=== PATIENT | male | born 1935 | race Caucasian/White ===

== ENCOUNTER 2017-09-20 09:15 | Emergency (ER) | payer BC, MEDICARE ==
--- NOTE | 2017-09-20 09:49 | EDM.PDOC ---
ED HPI GENERAL MEDICAL PROBLEM - General Chief Complaint: General Stated Complaint: PASSED OUT Time Seen by Provider: 09/20/17 09:35 Source of Information: Reports: Patient, Family History Limitations: Reports: No Limitations - History of Present Illness INITIAL COMMENTS - FREE TEXT/NARRATIVE: Peña was walking with friends at the [facility] indoor field house when he lost consciousness spontaneously. He is uncertain of how long this episode occurred, but when recovered he was sitting in a wheelchair. There was no aura or premonition, no chest pain or SOB, no palpitations or focal weakness. He is currently asx. There is a PMH of Type II DM, HBP. He reportedly drank 4 glasses of water this am because he is dieting. - Related Data Allergies Allergy/AdvReac Type Severity Reaction Status Date / Time No Known Allergies Allergy Verified 09/20/17 10:23 Home Meds: Home Meds . [Unable to Verify Home Med List] 09/20/17 [History] Past Medical History Cardiovascular History: Reports: High Cholesterol, Hypertension Gastrointestinal History: Reports: Other (See Below) (elevated LFTs) Endocrine/Metabolic History: Reports: Diabetes, Type II Social & Family History - Tobacco Use Smoking Status *Q: Never Smoker Second Hand Smoke Exposure: No - Caffeine Use Caffeine Use: Reports: Coffee - Recreational Drug Use Recreational Drug Use: No ED ROS GENERAL - Review of Systems Review Of Systems: See Below Constitutional: Reports: No Symptoms HEENT: Reports: No Symptoms Respiratory: Reports: No Symptoms Cardiovascular: Reports: Syncope Endocrine: Reports: No Symptoms GI/Abdominal: Reports: No Symptoms : Reports: No Symptoms Musculoskeletal: Reports: No Symptoms Skin: Reports: No Symptoms Neurological: Reports: Syncope Psychiatric: Reports: No Symptoms Hematologic/Lymphatic: Reports: No Symptoms Immunologic: Reports: No Symptoms ED EXAM, GENERAL - Physical Exam Exam: See Below Exam Limited By: No Limitations General Appearance: Alert, WD/WN, No Apparent Distress Eye Exam: Bilateral Eye: Normal Inspection, PERRL Ears: Normal External Exam, Normal TMs Nose: Normal Inspection Throat/Mouth: Normal Inspection, Normal Oropharynx Head: Atraumatic, Normocephalic Neck: Normal Inspection, Supple, Non-Tender, Full Range of Motion Respiratory/Chest: No Respiratory Distress, Lungs Clear, Normal Breath Sounds, No Accessory Muscle Use, Chest Non-Tender Cardiovascular: Normal Peripheral Pulses, Regular Rate, Rhythm, No Edema, No Murmur GI/Abdominal: Normal Bowel Sounds, Soft, Non-Tender, No Organomegaly, No Distention, No Mass (Male) Exam: No Hernia Rectal (Males) Exam: Deferred Back Exam: Normal Inspection Extremities: Normal Range of Motion, Non-Tender, No Pedal Edema Neurological: Alert, Oriented, CN II-XII Intact, Normal Cognition, No Motor/ Sensory Deficits Psychiatric: Normal Affect, Normal Mood Skin Exam: Warm, Dry, Other (minor abrasions of the R forearm, L hand, and R knee; minor contusion of L hand thenar eminence) Lymphatic: No Adenopathy Course - Vital Signs Text/Narrative:: Peña remained stable at the [facility] ED. Orthostatic BPs were obtained and physiologic. Screening labs noted mild elevations of LFTs, and old finding and possibly related to Statin therapy. His ekg noted NSR. Last Recorded V/S: Last Vital Signs Temp 36.6 C 09/20/17 09:26 Pulse 64 09/20/17 09:26 Resp 15 09/20/17 09:26 BP 141/80 H 09/20/17 09:26 Pulse Ox 98 09/20/17 09:26 Orthostatic Blood Pressure [ 130/71 Standing] Orthostatic Blood Pressure [ 140/71 Sitting] Orthostatic Blood Pressure [ 147/66 Supine] - Orders/Labs/Meds Orders: Active Orders 24 hr Category Date Time Status Orthostatic Vital Signs [RC] ASDIRECTED Care 09/20/17 11:04 Active UA W/MICROSCOPIC [URIN] Stat Lab 09/20/17 10:56 Received EKG 12 Lead [EK] Routine Ther 09/20/17 09:45 Ordered Labs: Laboratory Tests 09/20/17 09/20/17 09/20/17 Range/Units 10:10 10:10 10:10 WBC 4.7 (4.5-12.0) X10-3/uL RBC 4.62 (4.30-5.75) x10(6)uL Hgb 15.3 (11.5-15.5) g/dL Hct 43.6 (30.0-51.3) % MCV 94.4 (80-96) fL MCH 33.2 (27.7-33.6) pg MCHC 35.2 (32.2-35.4) g/dL RDW 12.3 (11.5-15.5) % Plt Count 168 (125-369) X10(3)uL MPV 8.1 (7.4-10.4) fL Neut % (Auto) 68.1 (46-82) % Lymph % (Auto) 21.9 (13-37) % Ogle % (Auto) 6.0 (4-12) % Eos % (Auto) 3 (1.0-5.0) % Baso % (Auto) 1 (0-2) % Neut # (Auto) 3.3 (1.6-8.3) # Lymph # (Auto) 1.0 (0.6-5.0) # Ogle # (Auto) 0.3 (0.0-1.3) # Eos # (Auto) 0.1 (0.0-0.8) # Baso # (Auto) 0.0 (0.0-0.2) # Sodium 137 (135-145) mmol/L Potassium 4.2 (3.5-5.3) mmol/L Chloride 102 (100-110) mmol/L Carbon Dioxide 28 (23-29) mmol/L BUN 24 H (8-23) mg/dL Creatinine 1.2 (0.6-1.3) mg/dL Est Cr Clr Drug Dosing 53.16 mL/min Estimated GFR (MDRD) 58 L (>60) BUN/Creatinine Ratio 20.0 (9-20) Glucose 138 H (80-116) mg/dL POC Glucose (80-116) mg/dL Calcium 9.0 (8.6-10.2) mg/dL Total Bilirubin 1.5 H (0.1-1.3) mg/dL AST 55 H (5-27) IU/L ALT 43 H (14-26) IU/L Alkaline Phosphatase 66 (56-112) IU/L Troponin I < 0.01 L (0.02-0.06) NG/ML Total Protein 6.8 (6.0-8.0) g/dL Albumin 3.8 (3.2-4.6) g/dL Globulin 3.0 g/dL Albumin/Globulin Ratio 1.3 09/20/17 Range/Units 10:31 WBC (4.5-12.0) X10-3/uL RBC (4.30-5.75) x10(6)uL Hgb (11.5-15.5) g/dL Hct (30.0-51.3) % MCV (80-96) fL MCH (27.7-33.6) pg MCHC (32.2-35.4) g/dL RDW (11.5-15.5) % Plt Count (125-369) X10(3)uL MPV (7.4-10.4) fL Neut % (Auto) (46-82) % Lymph % (Auto) (13-37) % Ogle % (Auto) (4-12) % Eos % (Auto) (1.0-5.0) % Baso % (Auto) (0-2) % Neut # (Auto) (1.6-8.3) # Lymph # (Auto) (0.6-5.0) # Ogle # (Auto) (0.0-1.3) # Eos # (Auto) (0.0-0.8) # Baso # (Auto) (0.0-0.2) # Sodium (135-145) mmol/L Potassium (3.5-5.3) mmol/L Chloride (100-110) mmol/L Carbon Dioxide (23-29) mmol/L BUN (8-23) mg/dL Creatinine (0.6-1.3) mg/dL Est Cr Clr Drug Dosing mL/min Estimated GFR (MDRD) (>60) BUN/Creatinine Ratio (9-20) Glucose (80-116) mg/dL POC Glucose 131 H (80-116) mg/dL Calcium (8.6-10.2) mg/dL Total Bilirubin (0.1-1.3) mg/dL AST (5-27) IU/L ALT (14-26) IU/L Alkaline Phosphatase (56-112) IU/L Troponin I (0.02-0.06) NG/ML Total Protein (6.0-8.0) g/dL Albumin (3.2-4.6) g/dL Globulin g/dL Albumin/Globulin Ratio Departure - Departure Time of Disposition: 11:13 Disposition: Home, Self-Care 01 Condition: Good Clinical Impression: Syncope and collapse - Discharge Information Referrals: Erik Tamez MD [Primary Care Provider] - Forms: ED Department Discharge Additional Instructions: follow up with PCP. - Problem List & Annotations (1) Syncope and collapse SNOMED Code(s): 215015266 Code(s): R55 - SYNCOPE AND COLLAPSE Status: Acute Current Visit: Yes Annotation/Comment:: Syncope NOS. I suggested activity as tolerated, no driving , and follow up with PCP for further assessment including cardiovascular study if indicated. His meds will remain the same. - Problem List Review Problem List Initiated/Reviewed/Updated: Yes - My Orders Last 24 Hours: My Active Orders 09/20/17 09:45 EKG 12 Lead [EK] Routine 09/20/17 10:56 UA W/MICROSCOPIC [URIN] Stat 09/20/17 11:04 Orthostatic Vital Signs [RC] ASDIRECTED - Assessment/Plan Last 24 Hours: My Active Orders 09/20/17 09:45 EKG 12 Lead [EK] Routine 09/20/17 10:56 UA W/MICROSCOPIC [URIN] Stat 09/20/17 11:04 Orthostatic Vital Signs [RC] ASDIRECTED Plan: Follow up with PCP.
== END 2017-09-20 11:10 | disposition home or self-care (01) ==
LOC: FB.ED 09:15
DX: R55 Syncope and collapse (principal); S60.222A Contusion of left hand, initial encounter; S50.811A Abrasion of right forearm, initial encounter; S80.211A Abrasion, right knee, initial encounter; I10 Essential (primary) hypertension; E11.9 Type 2 diabetes mellitus without complications; W01.198A Fall on same level from slipping, tripping and stumbling with subsequent striking against other object, initial encounter
CPT/HCPCS: 36415; 80053; 81001; 82962; 84484; 85025; 93005; 99284

== ENCOUNTER 2017-09-26 19:15 | Emergency (ER) | payer BC ==
[2017-09-26] MEDS ORDERED: Sodium Chloride 0.9% 1,000 ML IV ONE (19:42)
[2017-09-26] MEDS ORDERED: cloNIDine 0.1 MG Tab PO ONE (21:02)
[2017-09-26] MEDS ORDERED: Iopamidol 755 Mg/ML 75 ML Bottle IV ONE (21:08)
[2017-09-26] MEDS ORDERED: Acetaminophen 500 MG Tab PO ONE (23:10)
--- NOTE | 2017-09-27 00:09 | EDM.PDOC ---
ED HPI GENERAL MEDICAL PROBLEM - General Chief Complaint: Cardiovascular Problem Stated Complaint: SYNCOPE Time Seen by Provider: 09/26/17 19:15 Source of Information: Reports: Patient History Limitations: Reports: No Limitations - History of Present Illness INITIAL COMMENTS - FREE TEXT/NARRATIVE: c/o syncope pt felt fine today, went out to bingo with his , ate popcorn, returned home , after parking car he went out to get the mail and collapsed on the garage floor on his way back into the house, thinks he may been slightly dizzy, slight posterior head and shoulder soreness, no incontinence of B & B, no shaking per , aroused quickly, declined EMS, driven to ED by his fully alert here, not postictal h/o syncope 2w ago, had 24h Holtor completed 2d ago, does not know the results has an EST at 11:[address] 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 who accepted pt in transfer, he reviewed the echo from 1y ago which showed normal valves and no dilation of the aorta Treatments CIRCLE BEVELER: Reports: EKG Upper shoulder pain Pain Score (Numeric/FACES): 3 - Related Data Allergies Allergy/AdvReac Type Severity Reaction Status Date / Time No Known Allergies Allergy Verified 09/20/17 10:23 Home Meds: Home Meds Aspirin [Adult Low Dose Aspirin EC] 81 mg PO BEDTIME 09/26/17 [History] Hydrochlorothiazide/Lisinopril [Lisinopril/HCTZ 10-12.5 MG] 1 tab DAILY [History] Lutein [Natural Lutein] 20 mg PO DAILY 09/26/17 [History] Multivitamin [Multivitamins] 1 each PO DAILY 09/26/17 [History] Pravastatin Sodium [Pravastatin Sodium] 20 mg BEDTIME 09/26/17 [History] metFORMIN HCl [Metformin HCl] 250 mg DAILY 09/26/17 [History] Past Medical History HEENT History: Reports: Cataract, Hard of Hearing Cardiovascular History: Reports: Heart Murmur, High Cholesterol, Hypertension Gastrointestinal History: Reports: Other (See Below) Other Gastrointestinal History: gall stones Musculoskeletal History: Reports: Arthritis Neurological History: Reports: Concussion Endocrine/Metabolic History: Reports: Diabetes, Type II, Obesity/BMI 30+ - Infectious Disease History Infectious Disease History: Reports: Chicken Pox - Past Surgical History HEENT Surgical History: Reports: None Cardiovascular Surgical History: Reports: None GI Surgical History: Reports: Colonoscopy Social & Family History - Family History Family Medical History: Noncontributory - Tobacco Use Smoking Status *Q: Former Smoker Years of Tobacco use: 9 Used Tobacco, but Quit: Yes Month Tobacco Last Used: 1964 Second Hand Smoke Exposure: No - Caffeine Use Caffeine Use: Reports: Coffee - Alcohol Use Days Per Week of Alcohol Use: 2 Number of Drinks Per Day: 2 Total Drinks Per Week: 4 - Recreational Drug Use Recreational Drug Use: No ED ROS GENERAL - Review of Systems Review Of Systems: See Below Constitutional: Reports: No Symptoms HEENT: Reports: No Symptoms Respiratory: Reports: No Symptoms Cardiovascular: Reports: No Symptoms Endocrine: Reports: No Symptoms GI/Abdominal: Reports: No Symptoms : Reports: No Symptoms Musculoskeletal: Reports: No Symptoms Skin: Reports: No Symptoms Neurological: Reports: Dizziness, Syncope Psychiatric: Reports: No Symptoms Hematologic/Lymphatic: Reports: No Symptoms Immunologic: Reports: No Symptoms ED EXAM, GENERAL - Physical Exam Exam: See Below Exam Limited By: No Limitations General Appearance: Alert, WD/WN, No Apparent Distress Eye Exam: Bilateral Eye: Normal Inspection Nose: Normal Inspection, Normal Mucosa, No Blood Throat/Mouth: Normal Inspection, Normal Lips, Normal Teeth, Normal Gums, Normal Oropharynx, Normal Voice, No Airway Compromise Head: Atraumatic, Normocephalic, Other (slight tender at occiput, no STS, no ecchymosis) Neck: Normal Inspection, Supple, Non-Tender, Full Range of Motion Respiratory/Chest: No Respiratory Distress, Lungs Clear, Normal Breath Sounds, No Accessory Muscle Use, Chest Non-Tender Cardiovascular: Regular Rate, Rhythm, No Edema, No Gallop, No JVD, No Rub, Other (harsh decrescendo 2/6 JINNY at RUSB to LSB, loud A1, no S3/S4, no pope murmur, quiet precordium) GI/Abdominal: Soft, Non-Tender, No Organomegaly, No Distention Back Exam: Normal Inspection, Full Range of Motion, NT Extremities: Normal Inspection, Normal Range of Motion, Non-Tender, No Pedal Edema Neurological: Alert, Oriented, CN II-XII Intact, Normal Cognition, No Motor/ Sensory Deficits Psychiatric: Normal Affect, Normal Mood Skin Exam: Warm, Dry, Intact, Normal Color, No Rash Lymphatic: No Adenopathy Course - Vital Signs Last Recorded V/S: Last Vital Signs Temp 36.4 C 09/26/17 19:15 Pulse 72 09/26/17 19:15 Resp 18 09/26/17 19:15 BP 201/78 H 09/26/17 21:19 Pulse Ox 99 09/26/17 19:15 Orthostatic Blood Pressure [ 183/71 Standing] Orthostatic Blood Pressure [ 179/90 Sitting] Orthostatic Blood Pressure [ 174/72 Supine] - Orders/Labs/Meds Orders: Active Orders 24 hr Category Date Time Status EKG Documentation Completion [RC] ASDIRECTED Care 09/26/17 19:42 Active Ang Chest [CT] Stat Exams 09/26/17 21:17 Taken UA W/MICROSCOPIC [URIN] Stat Lab 09/26/17 23:30 Ordered EKG 12 Lead [EK] Routine Ther 09/26/17 19:42 Ordered Labs: Laboratory Tests 09/26/17 09/26/17 09/26/17 Range/Units 19:30 19:30 19:30 WBC 6.4 (4.5-12.0) X10-3/uL RBC 4.77 (4.30-5.75) x10(6)uL Hgb 15.6 H (11.5-15.5) g/dL Hct 45.0 (30.0-51.3) % MCV 94.3 (80-96) fL MCH 32.6 (27.7-33.6) pg MCHC 34.6 (32.2-35.4) g/dL RDW 12.5 (11.5-15.5) % Plt Count 194 (125-369) X10(3)uL MPV 8.0 (7.4-10.4) fL Neut % (Auto) 62.6 (46-82) % Lymph % (Auto) 24.0 (13-37) % [place]ks % (Auto) 9.2 (4-12) % Eos % (Auto) 4 (1.0-5.0) % Baso % (Auto) 0 (0-2) % Neut # (Auto) 4.0 (1.6-8.3) # Lymph # (Auto) 1.5 (0.6-5.0) # [place] # (Auto) 0.6 (0.0-1.3) # Eos # (Auto) 0.3 (0.0-0.8) # Baso # (Auto) 0.0 (0.0-0.2) # D-Dimer, Quantitative (100-400) ng/mL Sodium 137 (135-145) mmol/L Potassium 3.5 (3.5-5.3) mmol/L Chloride 105 (100-110) mmol/L Carbon Dioxide 24 (23-29) mmol/L BUN 17 (8-23) mg/dL Creatinine 1.1 (0.6-1.3) mg/dL Est Cr Clr Drug Dosing 58.00 mL/min Estimated GFR (MDRD) > 60 (>60) BUN/Creatinine Ratio 15.5 (9-20) Glucose 123 H (80-116) mg/dL Calcium 9.0 (8.6-10.2) mg/dL Total Bilirubin 1.1 (0.1-1.3) mg/dL AST 78 H D (5-27) IU/L ALT 61 H D (14-26) IU/L Alkaline Phosphatase 77 (56-112) IU/L Troponin I < 0.01 L (0.02-0.06) NG/ML C-Reactive Protein < 0.5 (0.0-1.0) mg/dL NT-Pro-B Natriuret Pep 105 (5-450) pg/mL Total Protein 7.9 (6.0-8.0) g/dL Albumin 3.8 (3.2-4.6) g/dL Globulin 4.1 g/dL Albumin/Globulin Ratio 0.9 TSH, Ultra Sensitive (0.4-5.5) nlU/mL 09/26/17 09/26/17 Range/Units 19:30 19:30 WBC (4.5-12.0) X10-3/uL RBC (4.30-5.75) x10(6)uL Hgb (11.5-15.5) g/dL Hct (30.0-51.3) % MCV (80-96) fL MCH (27.7-33.6) pg MCHC (32.2-35.4) g/dL RDW (11.5-15.5) % Plt Count (125-369) X10(3)uL MPV (7.4-10.4) fL Neut % (Auto) (46-82) % Lymph % (Auto) (13-37) % [place]ks % (Auto) (4-12) % Eos % (Auto) (1.0-5.0) % Baso % (Auto) (0-2) % Neut # (Auto) (1.6-8.3) # Lymph # (Auto) (0.6-5.0) # Berks # (Auto) (0.0-1.3) # Eos # (Auto) (0.0-0.8) # Baso # (Auto) (0.0-0.2) # D-Dimer, Quantitative 1640 H (100-400) ng/mL Sodium (135-145) mmol/L Potassium (3.5-5.3) mmol/L Chloride (100-110) mmol/L Carbon Dioxide (23-29) mmol/L BUN (8-23) mg/dL Creatinine (0.6-1.3) mg/dL Est Cr Clr Drug Dosing mL/min Estimated GFR (MDRD) (>60) BUN/Creatinine Ratio (9-20) Glucose (80-116) mg/dL Calcium (8.6-10.2) mg/dL Total Bilirubin (0.1-1.3) mg/dL AST (5-27) IU/L ALT (14-26) IU/L Alkaline Phosphatase (56-112) IU/L Troponin I (0.02-0.06) NG/ML C-Reactive Protein (0.0-1.0) mg/dL NT-Pro-B Natriuret Pep (5-450) pg/mL Total Protein (6.0-8.0) g/dL Albumin (3.2-4.6) g/dL Globulin g/dL Albumin/Globulin Ratio TSH, Ultra Sensitive 1.17 (0.4-5.5) nlU/mL Meds: Medications Discontinued Medications Generic Name Dose Route Start Last Admin Trade Name Freq PRN Reason Stop Dose Admin Acetaminophen 1,000 mg 09/26/17 23:10 Tylenol Extra Strength PO 09/26/17 23:11 ONETIME ONE Clonidine HCl 0.1 mg 09/26/17 21:02 09/26/17 21:19 Catapres PO 09/26/17 21:03 0.1 mg ONETIME ONE Administration Sodium Chloride 1,000 mls @ 999 mls/hr 09/26/17 19:42 09/26/17 20:15 Normal Saline IV 09/26/17 20:42 999 mls/hr .BOLUS ONE Administration Iopamidol 75 ml 09/26/17 21:08 09/26/17 21:29 Isovue-370 (76%) IV 09/26/17 21:09 75 ml ASDIRECTED ONE Administration Departure - Departure Time of Disposition: 00:10 Disposition: DC/Tfer to Other 70 Reason for Transfer *Q: Other (CV consult) Condition: Good Clinical Impression: Syncope, Sinus bradycardia, Minor head injury, Elevated d-dimer, Thoracic ascending aortic aneurysm, Elevated LFTs, PAC (premature atrial contraction), Premature ventricular beats, Transient hypertension, Aortic stenosis, Calcification of coronary artery Referrals: Erik Tamez MD [Primary Care Provider] - - My Orders Last 24 Hours: My Active Orders 09/26/17 19:42 EKG Documentation Completion [RC] ASDIRECTED EKG 12 Lead [EK] Routine 09/26/17 21:17 Ang Chest [CT] Stat 09/26/17 23:30 UA W/MICROSCOPIC [URIN] Stat - Assessment/Plan Last 24 Hours: My Active Orders 09/26/17 19:42 EKG Documentation Completion [RC] ASDIRECTED EKG 12 Lead [EK] Routine 09/26/17 21:17 Ang Chest [CT] Stat 09/26/17 23:30 UA W/MICROSCOPIC [URIN] Stat
== END 2017-09-27 00:42 | disposition other institution (70) ==
LOC: FB.ED 19:15
DX: I71.2 Thoracic aortic aneurysm, without rupture (principal); S09.90XA Unspecified injury of head, initial encounter; I49.1 Atrial premature depolarization; I49.3 Ventricular premature depolarization; I35.0 Nonrheumatic aortic (valve) stenosis; I25.10 Atherosclerotic heart disease of native coronary artery without angina pectoris; R79.1 Abnormal coagulation profile; R79.89 Other specified abnormal findings of blood chemistry; I10 Essential (primary) hypertension; E78.00 Pure hypercholesterolemia, unspecified; E11.9 Type 2 diabetes mellitus without complications; Z87.891 Personal history of nicotine dependence; Z79.84 Long term (current) use of oral hypoglycemic drugs; Z79.82 Long term (current) use of aspirin; Z79.899 Other long term (current) drug therapy
CPT/HCPCS: 36415; 71275; 80053; 81001; 83880; 84443; 84484; 85025; 85379; 86140; 93005; 96360; 99285; A9270; J7040; Q9967

== ENCOUNTER 2017-11-26 15:57 | Emergency (ER) | payer BC, MEDICAID, MEDICARE, OTHER ==
[2017-11-26] MEDS ORDERED: Aspirin 81 MG Tab.Chew PO ONE (16:06)
--- NOTE | 2017-11-26 16:21 | EDM.PDOC ---
ED HPI GENERAL MEDICAL PROBLEM - General Chief Complaint: Chest Pain Stated Complaint: CHEST PAIN Time Seen by Provider: 11/26/17 16:10 Source of Information: Reports: Patient, Old Records, RN History Limitations: Reports: No Limitations - History of Present Illness INITIAL COMMENTS - FREE TEXT/NARRATIVE: 82 yo male with an ascending aortic aneurysm, HTN, and recent syncopal spells presents with mild anterior chest pressure that began while walking around his home about 90 min before arrival. Had mild transient diaphoresis, but no SOB or nausea. No hx of CP. No fever or cough. No calf swelling/pain. Sx's improving while lying in the ER. Onset: Today Onset Date: 11/26/17 Onset Time: 14:35 Duration: Minutes:, Improving Location: Reports: Chest Quality: Reports: Pressure Severity: Mild Improves with: Reports: Rest Worsens with: Reports: Movement Context: Reports: Other (AODM, HTN) Associated Symptoms: Reports: Diaphoresis (mild, now gone) Treatments HEEL SEAT SANDER: Reports: Other (see below) (none) Chest Pain Score (Numeric/FACES): 5 - Related Data Allergies Allergy/AdvReac Type Severity Reaction Status Date / Time No Known Allergies Allergy Verified 09/20/17 10:23 Home Meds: Home Meds Aspirin [Adult Low Dose Aspirin EC] 81 mg PO BEDTIME 09/26/17 [History] Hydrochlorothiazide/Lisinopril [Lisinopril/HCTZ 10-12.5 MG] 1 tab DAILY [History] Lutein [Natural Lutein] 20 mg PO DAILY 09/26/17 [History] Multivitamin [Multivitamins] 1 each PO DAILY 09/26/17 [History] Pravastatin Sodium [Pravastatin Sodium] 20 mg BEDTIME 09/26/17 [History] metFORMIN HCl [Metformin HCl] 250 mg DAILY 09/26/17 [History] Past Medical History HEENT History: Reports: Cataract, Hard of Hearing Cardiovascular History: Reports: Heart Murmur, High Cholesterol, Hypertension Gastrointestinal History: Reports: Other (See Below) Other Gastrointestinal History: gall stones Musculoskeletal History: Reports: Arthritis Neurological History: Reports: Concussion Endocrine/Metabolic History: Reports: Diabetes, Type II, Obesity/BMI 30+ - Infectious Disease History Infectious Disease History: Reports: Chicken Pox - Past Surgical History HEENT Surgical History: Reports: None Cardiovascular Surgical History: Reports: None GI Surgical History: Reports: Colonoscopy Social & Family History - Family History Family Medical History: Noncontributory - Tobacco Use Smoking Status *Q: Former Smoker Years of Tobacco use: 9 Used Tobacco, but Quit: Yes Month Tobacco Last Used: 1964 Second Hand Smoke Exposure: No - Caffeine Use Caffeine Use: Reports: Coffee - Alcohol Use Days Per Week of Alcohol Use: 2 Number of Drinks Per Day: 2 Total Drinks Per Week: 4 - Recreational Drug Use Recreational Drug Use: No ED ROS GENERAL - Review of Systems Review Of Systems: See Below Constitutional: Reports: Diaphoresis (now gone) HEENT: Reports: No Symptoms Respiratory: Reports: No Symptoms Cardiovascular: Reports: Chest Pain Endocrine: Reports: No Symptoms GI/Abdominal: Reports: No Symptoms : Reports: No Symptoms Musculoskeletal: Reports: No Symptoms Skin: Reports: No Symptoms Neurological: Reports: No Symptoms Psychiatric: Reports: No Symptoms ED EXAM, GENERAL - Physical Exam Exam: See Below Exam Limited By: No Limitations General Appearance: Alert, WD/WN, No Apparent Distress Eye Exam: Bilateral Eye: Normal Inspection Ears: Normal External Exam, Normal Canal, Hearing Grossly Normal, Normal TMs Ear Exam: Bilateral Ear: Auricle Normal, Canal Normal, TM normal Nose: Normal Inspection, Normal Mucosa, No Blood Throat/Mouth: Normal Inspection, Normal Lips, Normal Teeth Head: Atraumatic, Normocephalic Neck: Normal Inspection, Supple, Non-Tender Respiratory/Chest: No Respiratory Distress, Lungs Clear, Normal Breath Sounds, No Accessory Muscle Use Cardiovascular: Regular Rate, Rhythm, No Edema GI/Abdominal: Normal Bowel Sounds, Soft, Non-Tender, No Distention Back Exam: Normal Inspection. No: CVA Tenderness (R), CVA Tenderness (L) Extremities: Normal Inspection, Normal Range of Motion, Non-Tender, No Pedal Edema Neurological: Alert, Oriented, CN II-XII Intact, Normal Cognition Psychiatric: Normal Affect, Normal Mood Skin Exam: Warm, Dry, Intact, Normal Color, No Rash Lymphatic: No Adenopathy EKG INTERPRETATION EKG Date: 11/26/17 Time: 16:10 Rhythm: NSR Rate (Beats/Min): 63 [place]: Normal P-Wave: Present QRS: RBBB ST-T: Normal QT: Normal EKG Interpretation Comments: Frequent PVC's,otherwise unchanged. Course - Vital Signs Text/Narrative:: labetolol 10 mg IV-BP dropped to 120's systolic. Repeated 10 mg IV, then 200 mg po given Plavix 600 mg po, Heparin 5000 U IV Last Recorded V/S: Last Vital Signs Temp 36.3 C 11/26/17 16:05 Pulse 53 L 11/26/17 18:22 Resp 18 11/26/17 18:00 BP 193/87 H 11/26/17 18:22 Pulse Ox 96 11/26/17 18:00 - Orders/Labs/Meds Orders: Active Orders 24 hr Category Date Time Status Cardiac Monitoring [RC] .As Directed Care 11/26/17 15:59 Active EKG Documentation Completion [RC] ASDIRECTED Care 11/26/17 15:59 Active Chest 1V Frontal [CR] Stat Exams 11/26/17 20:23 Taken Heparin Sodium/D5W [Heparin 25,000 Units in D5W 500 ML] Med 11/26/17 21:02 Ordered 25,000 units in 500 ml IV NOW Sodium Chloride 0.9% [Saline Flush] Med 11/26/17 16:30 Active 10 ml FLUSH ASDIRECTED PRN Saline Lock Insert [OM.PC] Routine Oth 11/26/17 16:30 Ordered EKG 12 Lead [EK] Routine Ther 11/26/17 15:59 Ordered Medication Orders Sodium Chloride (Saline Flush) 10 ml FLUSH ASDIRECTED PRN PRN Reason: Keep Vein Open Last Admin: 11/26/17 20:40 Dose: 10 ml Admin: 11/26/17 18:22 Dose: 10 ml Admin: 11/26/17 16:49 Dose: 10 ml Labs: Laboratory Tests 11/26/17 11/26/17 11/26/17 Range/Units 16:10 16:10 16:10 WBC 6.9 (4.5-12.0) X10-3/uL RBC 4.74 (4.30-5.75) x10(6)uL Hgb 15.1 (11.5-15.5) g/dL Hct 44.5 (30.0-51.3) % MCV 93.8 (80-96) fL MCH 31.8 (27.7-33.6) pg MCHC 33.9 (32.2-35.4) g/dL RDW 12.6 (11.5-15.5) % Plt Count 223 (125-369) X10(3)uL Sodium 141 (135-145) mmol/L Potassium 3.8 (3.5-5.3) mmol/L Chloride 105 (100-110) mmol/L Carbon Dioxide 25 (21-32) mmol/L BUN 26 H (7-18) mg/dL Creatinine 1.1 (0.70-1.30) mg/dL Est Cr Clr Drug Dosing 57.05 mL/min Estimated GFR (MDRD) > 60 (>60) BUN/Creatinine Ratio 23.6 H (9-20) Glucose 129 H (80-116) mg/dL Calcium 9.5 (8.6-10.2) mg/dL Magnesium (1.8-2.5) mg/dL Troponin I 0.044 (<0.017-0.056) ng/mL 11/26/17 11/26/17 Range/Units 16:10 19:35 WBC (4.5-12.0) X10-3/uL RBC (4.30-5.75) x10(6)uL Hgb (11.5-15.5) g/dL Hct (30.0-51.3) % MCV (80-96) fL MCH (27.7-33.6) pg MCHC (32.2-35.4) g/dL RDW (11.5-15.5) % Plt Count (125-369) X10(3)uL Sodium (135-145) mmol/L Potassium (3.5-5.3) mmol/L Chloride (100-110) mmol/L Carbon Dioxide (21-32) mmol/L BUN (7-18) mg/dL Creatinine (0.70-1.30) mg/dL Est Cr Clr Drug Dosing mL/min Estimated GFR (MDRD) (>60) BUN/Creatinine Ratio (9-20) Glucose (80-116) mg/dL Calcium (8.6-10.2) mg/dL Magnesium 1.9 (1.8-2.5) mg/dL Troponin I 0.071 H (<0.017-0.056) ng/mL Meds: Medications Generic Name Dose Route Start Last Admin Trade Name Freq PRN Reason Stop Dose Admin Sodium Chloride 10 ml 11/26/17 16:30 11/26/17 20:40 Saline Flush FLUSH 10 ml ASDIRECTED PRN Administration Keep Vein Open Discontinued Medications Generic Name Dose Route Start Last Admin Trade Name Freq PRN Reason Stop Dose Admin Aspirin 324 mg 11/26/17 16:06 11/26/17 16:05 Aspirin PO 11/26/17 16:07 324 mg ONETIME ONE Administration Clopidogrel Bisulfate 600 mg 11/26/17 20:31 11/26/17 20:36 Plavix PO 11/26/17 20:32 600 mg ONETIME ONE Administration Heparin Sodium (Porcine) 5,000 units 11/26/17 20:32 11/26/17 20:39 Heparin Sodium IVPUSH 11/26/17 20:33 5,000 units ONETIME ONE Administration Labetalol HCl 20 mg 11/26/17 16:30 11/26/17 16:39 Normodyne IVPUSH 11/26/17 16:31 10 mg ONETIME ONE Administration Protocol Labetalol HCl 10 mg 11/26/17 18:07 11/26/17 18:22 Normodyne IVPUSH 11/26/17 18:08 10 mg ONETIME ONE Administration Protocol Labetalol HCl 200 mg 11/26/17 18:08 11/26/17 18:22 Normodyne PO 11/26/17 18:09 200 mg ONETIME ONE Administration - Radiology Interpretation Free Text/Narrative:: CXR-negative Departure - Departure Time of Disposition: 21:15 Disposition: DC/Tfer to Acute Hospital 02 Reason for Transfer *Q: Other Condition: Fair Clinical Impression: Non-STEMI (non-ST elevated myocardial infarction) HTN (hypertension) Qualifiers: Hypertension type: unspecified Qualified Code(s): I10 - Essential (primary) hypertension Instructions: Chest Pain Observation Referrals: Erik Tamez MD [Primary Care Provider] - Forms: ED Department Discharge - My Orders Last 24 Hours: My Active Orders 11/26/17 15:59 Cardiac Monitoring [RC] .As Directed EKG Documentation Completion [RC] ASDIRECTED EKG 12 Lead [EK] Routine 11/26/17 16:30 Sodium Chloride 0.9% [Saline Flush] 10 ml FLUSH ASDIRECTED PRN Saline Lock Insert [OM.PC] Routine 11/26/17 20:23 Chest 1V Frontal [CR] Stat 11/26/17 21:02 Heparin Sodium/D5W [Heparin 25,000 Units in D5W 500 ML] 25,000 units in 500 ml IV NOW - Assessment/Plan Last 24 Hours: My Active Orders 11/26/17 15:59 Cardiac Monitoring [RC] .As Directed EKG Documentation Completion [RC] ASDIRECTED EKG 12 Lead [EK] Routine 11/26/17 16:30 Sodium Chloride 0.9% [Saline Flush] 10 ml FLUSH ASDIRECTED PRN Saline Lock Insert [OM.PC] Routine 11/26/17 20:23 Chest 1V Frontal [CR] Stat 11/26/17 21:02 Heparin Sodium/D5W [Heparin 25,000 Units in D5W 500 ML] 25,000 units in 500 ml IV NOW
[2017-11-26] MEDS ORDERED: Labetalol 20 MG/4 ML Syringe IVPUSH ONE ×2 (16:30→18:07)
[2017-11-26] MEDS: Sodium Chloride 0.9% 10 ML Syringe FLUSH PRN ×3 (16:49→20:40)
[2017-11-26] MEDS ORDERED: Labetalol 200 MG Tab PO ONE (18:08)
[2017-11-26] MEDS ORDERED: Clopidogrel 75 MG Tab PO ONE (20:31)
[2017-11-26] MEDS ORDERED: Heparin Sodium 5,000 Units/ML Vial IVPUSH ONE (20:32)
[2017-11-26] MEDS ORDERED: Heparin Sodium/D5W 25,000 UNITS/500 ML BAG IV STA (21:02)
--- NOTE | 2017-11-27 12:00 | CR ---
INDICATION: Chest pain, hypertension. CHEST: AP upright view of the chest 11/26/2017, with no comparison except for CT angiography of the chest dated 09/26/2017, revealed the heart to be normal in size and shape. The aorta is tortuous with calcification in the arch. Overlying EKG leads are noted. A definite active infiltrate or effusion was not identified. IMPRESSION: No acute process. MTDD
== END 2017-11-26 21:30 ==
LOC: EDBD → FB.ED 15:57
DX: I21.4 Non-ST elevation (NSTEMI) myocardial infarction (principal); E11.9 Type 2 diabetes mellitus without complications; E66.9 Obesity, unspecified; E78.00 Pure hypercholesterolemia, unspecified; I10 Essential (primary) hypertension; Z87.891 Personal history of nicotine dependence; Z79.899 Other long term (current) drug therapy
CPT/HCPCS: 36415; 71045; 80048; 83735; 84484; 85027; 93005; 96374; 96376; 99285; A9270; J1644; J7050; 93010; 96365; 96375

== ENCOUNTER 2017-12-27 08:45 | Day surgery (SDC) | payer OTHER ==
[~2017-12-27 08:45] MED LIST: Lactated Ringers 1,000 ML IV SCH; Sodium Chloride 0.9% 10 ML Syringe FLUSH PRN
--- NOTE | 2017-12-27 10:57 | PCM.HPR ---
H & P Addendum review - H & P Addendum Review Date of Original H & P: 12/25/17 Date Reviewed: 12/27/17 Time Reviewed: 10:00 Patient was Examined: No Changes
[2017-12-27] MEDS ORDERED: Lidocaine 2% 100 MG/5 ML Syringe IVPUSH ONE (11:00)
[2017-12-27] MEDS ORDERED: Ondansetron 4 MG/2 ML SDV IVPUSH ONE (11:00)
[2017-12-27] MEDS ORDERED: Lidocaine 4% 5 ML Amp INJECT ONE (11:00)
[2017-12-27] MEDS ORDERED: Propofol 200 MG/20 ML SDV IV ONE (11:00)
--- NOTE | 2017-12-27 11:53 | PCM.OPNOTE ---
- General Post-Op/Procedure Note Operative Procedure(s): EGD and Colonoscopy Findings: Antral Gastritis Pre Op Diagnosis: Melena Post-Op Diagnosis: Same Anesthesia Technique: MAC Primary Surgeon: Mc Martinez EBL in mLs: 0 Complications: None Condition: Good
--- NOTE | 2017-12-27 17:27 | OR ---
DATE OF OPERATION: 12/27/2017 SURGEON: Mc Martinez MD PREOPERATIVE DIAGNOSIS: Melena. POSTOPERATIVE DIAGNOSES: 1. Gastritis of the antrum. 2. Sigmoid diverticulosis. PROCEDURE PERFORMED: 1. Esophagogastroduodenoscopy. 2. Colonoscopy. ANESTHESIA: IV sedation. PROCEDURE IN DETAIL: The patient was brought to the procedure room, where he was placed on his left side and IV sedation administered. Oral bite block was placed and the upper endoscope was advanced into the esophagus under direct vision without difficulty. Vocal cords were viewed and were normal. The scope was advanced to the third portion of the duodenum, duodenum and pylorus were normal. Antrum had several areas of superficial inflammation with some black old blood on them. There was no evidence of active bleeding. There were no ulcers. I did not take any biopsies since he is on Plavix and aspirin. The body and fundus were normal. Retroflexion was normal. Air was removed from the stomach and the scope withdrawn through the remaining esophagus, which appeared normal. The patient tolerated this portion of the procedure well. Next, colonoscopy was performed, after digital rectal exam was done, which was normal. The colonoscope was inserted and advanced to the level of the cecum without difficulty. Cecal position was confirmed by identifying the appendiceal lumen and ileocecal valve. Prep was good and surfaces were well visualized. Upon withdrawing the scope, the ascending, transverse, and descending colon were normal in appearance. The sigmoid colon had a few diverticula present, rectum was normal, and retroflexion was normal. Air was removed and the scope withdrawn. The patient tolerated the procedure well and returned to recovery in stable condition. I will have the patient discontinue his aspirin for one week. He is on a proton pump inhibitor. No further followup is necessary. /[id number] JAZ/LU
== END 2017-12-27 13:25 | disposition home or self-care (01) ==
LOC: FB.SDS 08:45
PROVIDERS: ATTEND Surgery
DX: K57.30 Diverticulosis of large intestine without perforation or abscess without bleeding (principal); K29.70 Gastritis, unspecified, without bleeding; G47.33 Obstructive sleep apnea (adult) (pediatric); E11.69 Type 2 diabetes mellitus with other specified complication; E78.00 Pure hypercholesterolemia, unspecified; I10 Essential (primary) hypertension; I25.10 Atherosclerotic heart disease of native coronary artery without angina pectoris; E11.21 Type 2 diabetes mellitus with diabetic nephropathy; I25.2 Old myocardial infarction; Z99.89 Dependence on other enabling machines and devices; Z79.899 Other long term (current) drug therapy; Z79.84 Long term (current) use of oral hypoglycemic drugs; Z79.02 Long term (current) use of antithrombotics/antiplatelets; Z87.891 Personal history of nicotine dependence; Z88.8 Allergy status to other drugs, medicaments and biological substances; Z79.82 Long term (current) use of aspirin
CPT/HCPCS: 82962; J2405; J2704; J7120

== ENCOUNTER 2017-12-28 08:36 | Emergency (ER) | payer OTHER ==
--- NOTE | 2017-12-28 11:09 | CR ---
INDICATION: Ventricular arrhythmia. CHEST: An AP upright portable view of the chest, 12/28/2017, was compared with 11/26/2017, revealing no significant interval change - no acute process. The aorta is tortuous with calcification in the arch, as previously. Degenerative changes are noted in the spine. An active infiltrate or effusion was not identified. The heart is normal in size and shape. Overlying EKG leads and snap noted. IMPRESSION: 1. Stable chest. No acute process. 2. ASD aorta. 3. DJD spine. MTDD
--- NOTE | 2017-12-31 15:18 | ER ---
DATE SEEN: 12/28/2017 HISTORY OF PRESENT ILLNESS: Peña is an 82-year-old fellow who is status post two stents in 2016, loop monitors placed for rhythm disturbances, recently started on exercise activity because of previous falls. He fell twice in November and once in September and another occasion this last previous year. Today, he fell again while in physical therapy rehab. Code was called and the patient was found on the floor when I arrived. He had been monitored during this process and noted to have ventricular rhythm with delayed ventricular conduction and absence of depolarization for approximately 3 or 4 seconds. His wide complexes that represent possibly 3-beat ventricular tachycardia, indeterminate at this point. Subsequent monitor tracing of the events demonstrated return to sinus rhythm with innate pacemaker recapturing contractions. PAST MEDICAL HISTORY: Chronic kidney disease-stage 4 and hypertension. He had a colonoscopy and an EGD yesterday, 12/27/2017. This demonstrated ulcers in his gastrium and he was taken off his aspirin at this time. He has chronic elevation of his liver enzymes and noted to have cirrhosis on this basis. Today's AST is 90 and ALT is 71. The last time he had alcohol is approximately four days ago. Also cholelithiasis with 4.1 cm dilated ascending aorta and was unchanged from the previous study done in September. Presently, the patient denies chest pain. He did not hit his head. The nurses who were monitoring his rehab therapy noted he was on his treadmill and walking slowly and he put his hands on the bar and then fell toward the movie monitor. No history of head injury, neck injury, upper extremity injury, or knee or pelvic injury or chest wall injury. The patient denies shortness of breath. REVIEW OF SYSTEMS: He has decreased hearing. He does not have a hearing aid. Denies chest pain, shortness of breath, or cough or influenza symptoms. Denies any change in gastrointestinal symptoms, nausea, vomiting, diarrhea, or constipation. He notes that after he started his Plavix within a week, he started having black stools and he had endoscopy done yesterday. It demonstrated ulcers in his gastrium. Colonoscopist report, Dr. Martinez. Antrum had several areas of superficial inflammation with some black old blood crusts. There is no evidence for active bleeding. There are no ulcers. Biopsies were not taken since he is on Plavix and aspirin. Colonoscope was inserted and advanced to the level of the cecum without difficulty. Normal appearance the entire ascending, transverse, descending colon, sigmoid colon with a few sigmoid colon diverticula. The patient was advised to discontinue aspirin for one week. He is on PPIs. No further followup necessary per Dr. Martinez. From the rehab center, the patient was transferred by mariela to the ER. Blood pressures on arrival 124/61, 54 heart rate, regular rhythm, 16 respirations, 97% oxygen saturation. Rhythms followed, intermittently he has PVC at every 5th beat, and occasionally his 12th to 24th beat has PVC, wide complexes. No ventricular tachycardia. No couplets noted. Couplets were noted in the rehab center after he had fallen and experienced a syncope episode. He denies chest pain or shortness of breath. PHYSICAL EXAMINATION: HEENT: PERRLA intact. Pharynx without abnormality. NECK: No bruits. No thyromegaly. No masses. LUNGS: Clear without rales, rhonchi, or wheezes. HEART: S1, S2. There is no murmur. Occasional premature contractions. ABDOMEN: Soft. No guarding. No abdominal discomfort. Increased abdominal girth noted. He is well tanned. EXTREMITIES: Without abnormality. No tenderness to the lower extremities. LABORATORY DATA: Hemoglobin 13.3, normal, white count 10,500, platelets 255,000, PMNs 55, lymphocytes 31, monos 10, eos 3. INR 1.13. D-dimer is 460, abnormal, but not abnormal for his age. Does not reflect the D-dimer that was abnormal and was demonstrated on September 26, 2017, at 1,640. Complete metabolic panel; sodium 141, potassium 3.9, chloride 106, CO2 of 22, BUN slightly elevated at 34, creatinine 1.5, GFR estimated 45 (chronic kidney disease, stage 3). BUN and creatinine ratio suggest mild dehydration at 22.7. Glucose reactive, glucose elevation to 128. AST 90, ALT 71, alkaline phosphatase 113. This is slightly increased compared to what it was, the recent ALT and AST evaluation. EKG sinus rhythm, prolonged TX interval, right bundle-branch block. ASSESSMENT: 1. First degree AV block. 2. Status post, November, two stents placed for coronary artery disease. 3. This is the 5th episode of near syncope. 4. Colonoscopy demonstrated areas of punctate clot on the surface of the epigastrium with discontinuation of Plavix yesterday, 12/27/17. Colonoscopy was negative. 5. Hypertension. 6. Abnormal liver function tests, which are slowly increasing. Etiology indeterminate. Further workup and/or biopsy and/or gastrointestinal consultation. 7. Documented aortic aneurysm, 4.1 cm, on previous chart and also aortic stenosis. I did not see a cardiac ultrasound to validate this. Calcification within the coronary arteries per catheterization in 2016. 8. Obesity. BMI mildly elevated. 9. Last smoking was 1964. He smoked for 9 years, third of a pack a day. ASSESSMENT: Rhythm disturbance needs further evaluation, perhaps loop. He has "been on a loop monitor" but I am not sure what this means for him. I spoke to Dr. Bragg in [facility] and he was not aware of loop monitor. However, we would have to peruse his records more. PLAN: Dr. Bragg, the tube inspector, has agreed to accept the patient at 0905 hours. The patient will be transferred by ambulance. He is stable presently. /[id number] CHARAN/LU
== END 2017-12-28 12:04 ==
LOC: EDBD → FB.ED 08:38
DX: I44.0 Atrioventricular block, first degree (principal); I12.9 Hypertensive chronic kidney disease with stage 1 through stage 4 chronic kidney disease, or unspecified chronic kidney disease; N18.4 Chronic kidney disease, stage 4 (severe); R55 Syncope and collapse; K74.60 Unspecified cirrhosis of liver; I71.9 Aortic aneurysm of unspecified site, without rupture; I35.0 Nonrheumatic aortic (valve) stenosis; E66.9 Obesity, unspecified; R79.89 Other specified abnormal findings of blood chemistry; Z87.891 Personal history of nicotine dependence; Z95.5 Presence of coronary angioplasty implant and graft
CPT/HCPCS: 36415; 71045; 80053; 83880; 84484; 85025; 85379; 85610; 93005; 99284

== ENCOUNTER 2020-11-22 06:45 | Day surgery (SDC) | payer OTHER ==
[~2020-11-22 06:45] MED LIST changes: -Lactated Ringers 1,000 ML IV SCH
[2020-11-22] MEDS ORDERED: Lidocaine 2% 5 ML SDV INJECT ONE (06:46)
[2020-11-22] MEDS ORDERED: Midazolam 1 MG/ML 2 ML SDV IV ONE (06:46)
[2020-11-22] MEDS ORDERED: Propofol 200 MG/20 ML SDV IV ONE (06:46)
[2020-11-22] MEDS: Lactated Ringers 1,000 ML IV SCH (07:44)
--- NOTE | 2020-11-22 08:13 | PCM.PN ---
- General Info Date of Service: 11/22/20 - Review of Systems Systems Review Comment:: 84 y/o male with history of anemia and dark stools here for EGD and Colonoscopy. He is stable to proceed. Has not seen dark stools since he stopped his Eliquis and denies any SOB or weakness today. I have discussed the proposed procedures with the patient. He agrees to proceed accepting risks. No significant changes have occurred in his health status since his recent H and P. - Patient Data Vitals - Most Recent: Last Vital Signs Temp 97.8 F 11/22/20 07:15 Pulse 84 11/22/20 07:15 Resp 16 11/22/20 07:15 BP 138/68 11/22/20 07:15 Pulse Ox 97 11/22/20 07:15 Weight - Most Recent: 221 lb 9 oz Med Orders - Current: Current Medications Lactated Ringer's (Ringers, Lactated) 1,000 mls @ 125 mls/hr IV ASDIRECTED NIRMAL Last Admin: 11/22/20 07:44 Dose: 125 mls/hr Documented by: Sodium Chloride (Saline Flush) 10 ml FLUSH ASDIRECTED PRN PRN Reason: Keep Vein Open Sepsis Event Note - Focused Exam Vital Signs: Vital Signs Temp Pulse Resp BP Pulse Ox 11/22/20 07:15 97.8 F 84 16 138/68 97 - Problem List Review Problem List Initiated/Reviewed/Updated: Yes - My Orders Last 24 Hours: My Active Orders 11/22/20 Breakfast Nothing Per Oral Diet [DIET] 11/22/20 06:45 Patient Status [ADT] Routine Blood Glucose Check, Bedside [RC] ONETIME Patient to Empty Bladder [RC] ASDIRECTED Verify Patient Consent Obtain [RC] ASDIRECTED Lactated Ringers [Ringers, Lactated] 1,000 ml IV ASDIRECTED Sodium Chloride 0.9% [Saline Flush] 10 ml FLUSH ASDIRECTED PRN Peripheral IV Insertion Adult [OM.PC] Routine - Assessment Assessment:: GI Bleed - Plan Plan:: EGD and Colonoscopy
--- NOTE | 2020-11-22 09:09 | PCM.OPNOTE ---
- General Post-Op/Procedure Note Date of Surgery/Procedure: 11/22/20 Operative Procedure(s): EGD and Colonoscopy with Polypectomy Findings: No bleeding site seen Minimal gastritis in gastric antrum Extensive sigmoid diverticulosis but without inflammation Small Splenic flexure polyp Small hemorrhoids Pre Op Diagnosis: GI bleeding Post-Op Diagnosis: Gastritis. Sigmoid Diverticulosis. Colon polyp. hemorrhoids Anesthesia Technique: MAC Primary Surgeon: Osvaldo Grossman Pathology: Colon polyp EBL in mLs: 0 Complications: None Condition: Good
--- NOTE | 2020-11-22 17:10 | OR ---
DATE OF OPERATION: 11/22/2020 SURGEON: Osvaldo Grossman MD PREOPERATIVE DIAGNOSIS: Gastrointestinal bleed. POSTOPERATIVE DIAGNOSES: Gastritis, sigmoid diverticulosis, colon polyp, hemorrhoids. OPERATION PERFORMED: Esophagogastroduodenoscopy and colonoscopy with polypectomy. INDICATIONS FOR SURGERY: This 84-year-old male was recently noted to have dark stools and developed anemia after he was started on Eliquis. He also developed anemia at this time. With a presumed GI bleed, the patient was referred for EGD and colonoscopy. FINDINGS: No visible bleeding site was noted. During the patient's upper endoscopy, a minimal degree of inflammation in the antrum near the pylorus was identified, but no ulcerations or signs of bleeding were noted. The esophagus, remainder of the stomach and duodenum otherwise appeared normal. On colonoscopy, the patient has extensive sigmoid diverticulosis with multiple diverticula and some angulation of the colon, although no inflammation or visible signs of bleeding were identified. There was a small polyp, approximately 6 mm in size, noted at the splenic flexure. The remainder of the colon appeared normal. Terminal ileum appeared normal. The patient also had some small internal hemorrhoids. PROCEDURE IN DETAIL: The patient was taken to the operating room. He was given intravenous sedation, and with him in the left lateral decubitus position, the Olympus gastroscope was advanced through a mouth guard into the oral cavity. The scope was then advanced under direct visualization down through the esophagus, stomach, and into the duodenum where examination to the fourth portion was performed. Carefully, the duodenum was examined and then the full stomach including retroflex examination of the fundus was carried out. Only minimal inflammation was seen, and no ulcers or other bleeding sites were noted. The GE junction and then the esophagus were re-examined as the scope was withdrawn. Attention was turned to colonoscopy. Digital rectal exam was performed showing no rectal masses. The Olympus colonoscope was inserted into the rectum. Retroflexed examination of the rectal canal was performed. The scope was then carefully advanced under direct visualization through the colon. It was somewhat difficulty negotiating the sigmoid region because of extensive diverticulosis, and hand pressure is required, but the scope was eventually able to be advanced to the cecum. At the splenic flexure, a small polyp was identified. This was removed with a cautery snare and retrieved into a polyp trap. The cecal identity is confirmed by noting a normal internal cecal anatomy including appendiceal orifice and ileocecal valve. The light was also noted to transilluminate the abdominal wall in the right lower quadrant. The ileocecal valve was cannulated and the terminal ileum examined. This appeared normal without visible signs of inflammation or other mucosal lesions. The scope was then slowly withdrawn, sequentially re-examining the colonic segments until the entire colon and rectum had been fully examined. The scope was removed, and the patient was taken from the operating room in satisfactory condition. ESTIMATED BLOOD LOSS: Zero. COMPLICATIONS: None. PROGNOSIS: Good. /[id number]
== END 2020-11-22 11:23 | disposition home or self-care (01) ==
LOC: FB.SDS 06:45
PROVIDERS: ATTEND Surgery
DX: D12.3 Benign neoplasm of transverse colon (principal); D64.9 Anemia, unspecified; K57.31 Diverticulosis of large intestine without perforation or abscess with bleeding; E11.9 Type 2 diabetes mellitus without complications; I10 Essential (primary) hypertension; I25.10 Atherosclerotic heart disease of native coronary artery without angina pectoris; I48.91 Unspecified atrial fibrillation; Z79.899 Other long term (current) drug therapy; Z86.16 Personal history of COVID-19; Z87.891 Personal history of nicotine dependence
CPT/HCPCS: 00813; 43235; 45385; 82962; 88305; J2001; J2250; J2704; J7120

== ENCOUNTER 2024-06-16 13:59 | Emergency (ER) | payer MEDICARE ==
[2024-06-16] MEDS ORDERED: Sodium Chloride 0.9% 10 ML Syringe FLUSH PRN (14:12)
[2024-06-16] MEDS: Ondansetron 4 MG/2 ML SDV IVPUSH ONE (14:49)
[2024-06-16 15:05] LABS: BASOPHILS ABSOLUTE AUTO 0.1 x10-3/uL (0.0-0.3); BASOPHILS PERCENT AUTO 0.5 % (0.3-3.8); HEMATOCRIT 26.6 % (38.3-50.1); HEMOGLOBIN 9.6 g/dL (12.9-17.7); LYMPHOCYTES ABSOLUTE AUTO 1.6 x10-3/uL (0.5-4.5); LYMPHOCYTES PERCENT AUTO 15.4 % (15.8-45.3); MEAN CORPUSCULAR HEMOGLOBIN 34.9 pg (27.0-33.3); MEAN CORPUSCULAR HGB CONC 36.3 g/dL (28.7-35.3); MEAN PLATELET VOLUME 11.7 fL (6.7-11.0); MONOCYTES ABSOLUTE AUTO 0.5 x10-3/uL (0.0-1.2); MONOCYTES PERCENT AUTO 4.4 % (5.5-15.2); NEUTROPHILS ABSOLUTE AUTO 8.2 x10-3/uL (1.7-6.9); NEUTROPHILS PERCENT AUTO 79.7 % (40.3-71.8); RED BLOOD CELL COUNT 2.77 x10(6)uL (3.90-5.90); RED CELL DISTRIBUTION WIDTH 13.1 % (12.4-15.0); WHITE BLOOD CELL COUNT,WBC 10.3 x10-3/uL (3.2-10.1)
[2024-06-16 15:10] LABS: BLOOD UREA NITROGEN,BUN 55 mg/dL (7-18); BUN/CREATININE RATIO 36.7 (9-20); CALCIUM 8.9 mg/dL (8.6-10.2); CARBON DIOXIDE,CO2 24 mmol/L (21-32); CHLORIDE,CL 112 mmol/L (100-110); CREATININE 1.5 mg/dL (0.70-1.30); ESTIMATED GFR 45 mL/min (>60); GLUCOSE RANDOM 180 mg/dL (80-116); POTASSIUM,K 4.5 mmol/L (3.5-5.3); SODIUM,NA 144 mmol/L (135-145)
[2024-06-16 15:13] LABS: PLATELET COUNT,PLT 25 x10(3)uL (117-477)
[2024-06-16 15:14] LABS: INR 1.2 (1.00-1.24); PROTHROMBIN TIME 12.3 sec (9.0-11.1)
[2024-06-16 15:15] LABS: A/G RATIO 0.5; ALBUMIN 2.2 g/dL (3.2-4.6); BILIRUBIN TOTAL 1.3 mg/dL (0.1-1.3); PROTEIN TOTAL,TP 6.7 g/dL (6.0-8.0)
[2024-06-16 15:16] LABS: ALANINE AMINOTRANSFERASE,ALT 18 U/L (12-36); ALKALINE PHOSPHATASE 99 IU/L (56-112); ASPARTATE AMNIOTRANSFERASE,AST 23 IU/L (5-25)
[2024-06-16 15:24] LABS: BILIRUBIN,URINE NEGATIVE (NEGATIVE); GLUCOSE,URINE NORMAL (NORMAL); KETONES,URINE NEGATIVE (NEGATIVE); LEUKOCYTE ESTERASE,URINE NEGATIVE (NEGATIVE); NITRITE,URINE NEGATIVE (NEGATIVE); OCCULT BLOOD,URINE MODERATE (NEGATIVE); PROTEIN,URINE NEGATIVE (NEGATIVE); UROBILINOGEN,URINE NORMAL (NEGATIVE)
[2024-06-16] MEDS: Sodium Chloride 0.9% 1,000 ML IV ONE ×2 (15:24→17:10)
[2024-06-16 15:28] LABS: APPEARANCE,URINE CLEAR (CLEAR); BACTERIA,URINE OCCASIONAL (NS); COLOR,URINE YELLOW (YELLOW); SQUAMOUS EPITHELIAL CELLS,UR OCCASIONAL (NS,R,O); WBC,URINE 0-5 (0-5)
[2024-06-16 15:34] LABS: LACTIC ACID 3.1 mmol/L (0.4-2.0)
[2024-06-16] MEDS: cefTRIAXone 1 GM Vial IV ONE (17:19)
== END 2024-06-16 19:33 ==
LOC: FB.ED 13:59
DX: I63.20 Cerebral infarction due to unspecified occlusion or stenosis of unspecified precerebral arteries (principal); A41.9 Sepsis, unspecified organism; R65.20 Severe sepsis without septic shock; I21.4 Non-ST elevation (NSTEMI) myocardial infarction; I10 Essential (primary) hypertension; E78.00 Pure hypercholesterolemia, unspecified; I25.10 Atherosclerotic heart disease of native coronary artery without angina pectoris; K21.9 Gastro-esophageal reflux disease without esophagitis; E11.9 Type 2 diabetes mellitus without complications; Z79.899 Other long term (current) drug therapy; Z79.84 Long term (current) use of oral hypoglycemic drugs; Z79.82 Long term (current) use of aspirin; Z88.8 Allergy status to other drugs, medicaments and biological substances
CPT/HCPCS: 36415; 70450; 71045; 80053; 81001; 82947; 83605; 84484; 85025; 85610; 85730; 87040; 93005; 93010; 96361; 96365; 96375; 99285; 99285-25; J0696; J2405; J7030

== ENCOUNTER 2024-07-21 09:07 | Emergency (ER) | payer MEDICARE ==
[2024-07-21] MEDS ORDERED: Sodium Chloride 0.9% 10 ML Syringe FLUSH PRN (09:16)
[2024-07-21 09:30] LABS: BASOPHILS ABSOLUTE AUTO 0.1 x10-3/uL (0.0-0.3); BASOPHILS PERCENT AUTO 0.8 % (0.3-3.8); EOSINOPHILS ABSOLUTE AUTO 0.1 x10-3/uL (0.0-0.6); EOSINOPHILS PERCENT AUTO 1.4 % (0.1-6.8); HEMATOCRIT 33.3 % (38.3-50.1); HEMOGLOBIN 10.9 g/dL (12.9-17.7); LYMPHOCYTES ABSOLUTE AUTO 1.2 x10-3/uL (0.5-4.5); LYMPHOCYTES PERCENT AUTO 14.9 % (15.8-45.3); MEAN CORPUSCULAR HEMOGLOBIN 32.1 pg (27.0-33.3); MEAN CORPUSCULAR HGB CONC 32.9 g/dL (28.7-35.3); MEAN CORPUSCULAR VOLUME 97.6 fL (80.8-98.7); MONOCYTES ABSOLUTE AUTO 1.1 x10-3/uL (0.0-1.2); MONOCYTES PERCENT AUTO 13.1 % (5.5-15.2); NEUTROPHILS ABSOLUTE AUTO 5.8 x10-3/uL (1.7-6.9); NEUTROPHILS PERCENT AUTO 69.8 % (40.3-71.8); PLATELET COUNT,PLT 172 x10(3)uL (117-477); RED CELL DISTRIBUTION WIDTH 16.6 % (12.4-15.0); WHITE BLOOD CELL COUNT,WBC 8.3 x10-3/uL (3.2-10.1)
[2024-07-21 09:33] LABS: BLOOD UREA NITROGEN,BUN 18 mg/dL (7-18); BUN/CREATININE RATIO 9.5 (9-20); CALCIUM 8.6 mg/dL (8.6-10.2); CARBON DIOXIDE,CO2 25 mmol/L (21-32); CHLORIDE,CL 103 mmol/L (100-110); CREATININE 1.9 mg/dL (0.70-1.30); ESTIMATED GFR 34 mL/min (>60); GLUCOSE RANDOM 153 mg/dL (80-116); POTASSIUM,K 3.7 mmol/L (3.5-5.3); SODIUM,NA 138 mmol/L (135-145)
[2024-07-21 09:39] LABS: A/G RATIO 0.6; ALANINE AMINOTRANSFERASE,ALT 16 U/L (12-36); ALBUMIN 2.7 g/dL (3.2-4.6); ALKALINE PHOSPHATASE 133 IU/L (56-112); ASPARTATE AMNIOTRANSFERASE,AST 37 IU/L (5-25); BILIRUBIN TOTAL 1.8 mg/dL (0.1-1.3); PROTEIN TOTAL,TP 7.3 g/dL (6.0-8.0)
[2024-07-21 09:40] LABS: EST CRCL DRUG DOSING (CG) 29.72 mL/min
[2024-07-21 09:54] LABS: RED BLOOD CELL COUNT 3.41 x10(6)uL (3.90-5.90)
[2024-07-21] MEDS: Sodium Chloride 0.9% 1,000 ML IV ONE (10:00)
[2024-07-21] MEDS: Aspirin 81 MG Tab.Chew PO ONE (10:18)
== END 2024-07-21 13:39 ==
LOC: FB.ED 09:07
DX: J18.9 Pneumonia, unspecified organism (principal); I13.0 Hypertensive heart and chronic kidney disease with heart failure and stage 1 through stage 4 chronic kidney disease, or unspecified chronic kidney disease; I50.9 Heart failure, unspecified; N18.32 Chronic kidney disease, stage 3b; D64.9 Anemia, unspecified; I21.4 Non-ST elevation (NSTEMI) myocardial infarction; I25.10 Atherosclerotic heart disease of native coronary artery without angina pectoris; I25.2 Old myocardial infarction; K21.9 Gastro-esophageal reflux disease without esophagitis; E78.00 Pure hypercholesterolemia, unspecified; E11.22 Type 2 diabetes mellitus with diabetic chronic kidney disease; E66.9 Obesity, unspecified; Z95.5 Presence of coronary angioplasty implant and graft; Z95.0 Presence of cardiac pacemaker; Z79.899 Other long term (current) drug therapy; Z79.84 Long term (current) use of oral hypoglycemic drugs; Z88.8 Allergy status to other drugs, medicaments and biological substances; Z68.31 Body mass index [BMI] 31.0-31.9, adult
CPT/HCPCS: 36415; 71046; 80053; 83605; 83735; 83880; 84484; 85025; 86140; 93005; 96360; 99285; A9270; J7030; 93010